=== PATIENT | female | born 2000 | race Caucasian/White ===

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

== ENCOUNTER 2020-07-04 09:33 | Emergency (ER) | payer OTHER ==
[2020-07-04 10:17] LABS: Absolute Lymphocytes (CBC) 2.1 K/uL (0.7-4.9); Basophils % 0.7 % (0-1.3); Hematocrit 40.6 % (36.0-45.0); Lymphocytes % 19.6 % (15.3-44.8); MPV 8.3 fL (7.6-11.3); RBC Red Blood Cell Count 5.15 M/uL (3.86-4.86)
[2020-07-04 10:32] LABS: BUN Blood Urea Nitrogen 12 mg/dL (7-18); Bicarbonate 24 mmol/L (21-32); Glucose Level 77 mg/dL (74-106); HCG, Quantitative 640 mIU/mL (1-3); Potassium 3.7 mmol/L (3.5-5.1); Sodium Level 138 mmol/L (136-145)
[2020-07-04 11:03] LABS: Urine Blood NEGATIVE (NEG); Urine Glucose NEGATIVE (NEG); Urine Protein NEGATIVE (NEG); Urine Specific Gravity 1.025 (1.005-1.030); Urine pH 5.5 (5.0-7.0)
[2020-07-04 11:18] LABS: Urine Bacteria >50 /HPF (<20); Urine Mucus 2+ /HPF (NONE SEEN); Urine RBC <5 /HPF (NONE SEEN)
--- OUTSIDE RECORDS SUMMARY | 2020-07-04 11:32 | XMS REPORT | Summary of Care ---
:2000 Author Organization [facility] Address [address] [place] [id number] Care Team Providers Name Role Phone Pcp, Patient Does Not Have A Primary Care Provider +1-000-00 0-0000 Reason for Visit Reason Comments LAB covid Encounter Details Date Type Department Care Team Description 04/16/2020 Laboratory Only [facility] Breann Davila FNP [address] [place] [address] Suspected Covid-19 [facility] Lab, Adc Fam Pob I Virus Infection [address] [place] [address] Allergies Not on Filedocumented as of this encounter (statuses as of 04/16/2020) Medications Not on filedocumented as of this encounter (statuses as of 04/16/2020) Active Problems Not on filedocumented as of this encounter (statuses as of 04/16/2020) Social History Tobacco Use Types Packs/Day Years Used Date Never Assessed Sex Assigned at Date Recorded Not on file COVID-19 Exposure Response Date Recorded In the last month, have you been in contact with Yes 04/16/2020 1:46 PM CDT someone who was confirmed or suspected to have Coronavirus / COVID-19? documented as of this encounter Last Filed Vital Signs Not on filedocumented in this encounter Nursing Notes Carie Ponce RN - 04/16/2020 1:40 PM CDPam Hall is a 19 year old female here for COVID Screening with a Nasopharyngeal Swab All droplet and contact precautions taken with appropriate PPE worn while interacting with patient. ? Goggles ? N95 Mask ? Gloves ? Gown RR 18 Pulse Ox 99% Patient educated on plan of care for visit, swabbing technique, risks and benefits of test and length of time to receive results. Verbal consent obtained to perform test. CDC Fact Sheet for Patients nCoV Diagnostic Panel dated 10/11/2019 and Factsheet What to Do if Sick with COVID 19 09/21/19 provided. Patient swabbed per appropriate nasopharyngeal technique, and patient tolerated well. Patient was discharged from the testing clinic in stable condition. Carie Ponce RN 04/16/2020 1:47 PM documented in this encounter Plan of Treatment Name Type Priority Associated Diagnoses Order S chedule COVID-19 (PCR MOLECULAR LAB Routine Suspected Covid-1 9 Virus Expected: 04/16/2020, TESTING) Infection Expires: 2020 documented as of this encounter Results Not on filedocumented in this encounter Visit Diagnoses Diagnosis Suspected Covid-19 Virus Infection - [facility] documented in this encounter Additional Health Concerns Infection Onset Date Last Indicated Resolved Time COVID-19 Rule Out 04/16/2020 04/16/2020 documented as of this encounter Insurance Payer Benefit Plan / Subscriber ID Effective Dates Phone Addre ss Type Group [facility] [id number] 2018-Pres PPO/POS PPO/POS ent documented as of this encounter
--- OUTSIDE RECORDS SUMMARY | 2020-07-04 11:32 | XMS REPORT | Continuity of Care Document ---
:2000 Author Organization [facility] t Address [address] [place] [address] Care Team Providers Name Role Phone Juan R De Oliveira MD Primary Care Physician Lab, Fam Pob I Attending Clinician Unavailable Doctor Unassigned, Name Attending Clinician Unavailable Lia RN Attending Clinician Unavailable Problems This patient has no known problems. Allergies, Adverse Reactions, Alerts This patient has no known allergies or adverse reactions. Social History Social Habit Start Date Stop Date Quantity Comments Source Sex Assigned At MD [place] Medications Ordered Filled Start Stop Current Ordering Indication Dosage Frequency Signature Comments Components Source Medication Medication Date Date Medication? Clinician (SIG) Name Name dextroamphe 2018-0 Yes 1{tbl} Take 1 tamine-amph 9-20 tablet by And erso etamine 20 00:00: mouth n mg tab 00 daily. Procedures This patient has no known procedures. Encounters Start End Encounter Admission Attending Care Care Encounter Source Date/Time Date/Time Type Type Clinicians Facility Department ID 2020-04-16 2020-04-16 Laboratory Lab, [facility] [id number] 13:42:09 14:02:09 Only Fam Pob I Health [id number] [place] [id number] [facility] [phone] [address] 2020-04-16 2020-04-16 Orders Doctor DOWNS [id number] 00:00:00 00:00:00 Only UnassHIEN balderrama [id number] [place] [facility] [id number] [id number] 2020-03-15 2020-03-15 Telephone Fatmata Fitzgerald [id number] 00:00:00 00:00:00 HIEN [id number] [facility] [id number] 2020-03-14 2020-03-14 Laboratory Lab, [facility] [id number] 09:49:25 10:09:25 Only Fam Pob I Health [id number] [place] [id number] [facility]io [phone] [place] [address] [address] Results This patient has no known results.
--- OUTSIDE RECORDS SUMMARY | 2020-07-04 11:32 | XMS REPORT | Summary of Care ---
:2000 Author Organization [facility] Address [address] [place] [address] Care Team Providers Name Role Phone Pcp, Patient Does Not Have A Primary Care Provider +1-000-00 0-0000 Encounter Details Date Type Department Care Team Description 04/16/2020 Orders Only [facility] Doctor Unassigned, No [address] [facility] [place] [address] [address] [place] [address] Allergies Not on Filedocumented as of this encounter (statuses as of 04/16/2020) Medications Not on filedocumented as of this encounter (statuses as of 04/16/2020) Active Problems Not on filedocumented as of this encounter (statuses as of 04/16/2020) Social History Tobacco Use Types Packs/Day Years Used Date Never Assessed Sex Assigned at Date Recorded Not on file documented as of this encounter Last Filed Vital Signs Not on filedocumented in this encounter Plan of Treatment Not on filedocumented as of this encounter Procedures Procedure Name Priority Date/Time Associated Diagnosis Comme nts ASSIGNMENT OF BENEFITS Routine 04/16/2020 1:40 PM CDT documented in this encounter Results Not on filedocumented in this encounter Insurance Payer Benefit Plan / Subscriber ID Effective Dates Phone Addre ss Type Group [facility] [id number] 2018-Pres PPO/POS PPO/POS ent documented as of this encounter
--- NOTE | 2020-07-04 11:39 | ER ---
Nurse's Notes [facility] Name: Jessica Hall Age: 19 yrs Sex: Female : 2000 Arrival Date: 07/04/2020 Time: 09:35 Bed 7 Private MD: Diagnosis: Threatened ;Urinary tract infection, site not specified Presentation: 07/04 09:41 Chief complaint: Patient states: had a positive UPT at home yesterday , LMP was Nov1 , iw has been having cramping for a few days but was worse yesterday , no vaginal bleeding. Coronavirus screen: At this time, the client does not indicate any symptoms associated with coronavirus-19. Ebola Screen: Patient negative for fever greater than or equal to 101.5 degrees Fahrenheit, and additional compatible Ebola Virus Disease symptoms Patient denies exposure to infectious person. Patient denies travel to an Ebola-affected area in the 21 days before illness onset. No symptoms or risks identified at this time. Initial Sepsis Screen: Does the patient meet any 2 criteria? No. Patient's initial sepsis screen is negative. Does the patient have a suspected source of infection? No. Patient's initial sepsis screen is negative. Risk Assessment: Do you want to hurt yourself or someone else? Patient reports no desire to harm self or others. Onset of symptoms was July 02, 2020. 09:41 Method Of Arrival: Ambulatory iw 09:41 Acuity: JOHANNY 3 iw Triage Assessment: 10:00 General: Appears in no apparent distress. uncomfortable, Behavior is cooperative, bp appropriate for age, anxious. Pain: Complains of pain in pelvis. EENT: No deficits noted. Neuro: No deficits noted. Cardiovascular: No deficits noted. Respiratory: No deficits noted. GI: No signs and/or symptoms were reported involving the gastrointestinal system. : Reports cramping, Denies vaginal bleeding. Derm: No deficits noted. Musculoskeletal: No deficits noted. 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 - Family history:: not pertinent. - Social history:: Smoking status: Patient denies any tobacco usage or history of. - Hospitalizations: : No recent hospitalization is reported. Screenin:00 Abuse screen: Denies threats or abuse. Denies injuries from another. Nutritional bp screening: No deficits noted. Tuberculosis screening: No symptoms or risk factors identified. Fall Risk None identified. Assessment: 10:00 General: SEE TRIAGE NOTE. bp 11:07 Reassessment: RHOGAM REQUESTED FROM LAB. DISPO ON HOLD. bp 12:40 Reassessment: PT D/C HOME AMBULATORY WITH FAMILY, DX WITH THREATENED AND UTI. bp Vital Signs: 09:41 BP 138 / 76; Pulse 89; Resp 16; Temp 97.8; Pulse Ox 100% on R/A; iw 11:07 BP 123 / 85; Pulse 85; Resp 16; Pulse Ox 100% ; bp 12:15 BP 124 / 82; Pulse 89; Resp 17; Pulse Ox 100% ; bp ED Course: 09:35 Patient arrived in ED. as 09:39 Alverto Marie MD is Attending Physician. rn 09:43 Triage completed. iw 09:43 Arm band placed on. iw 09:47 Radiology exam delayed due to test not completed at this time. aa4 10:00 Abiel Benson, RN is Primary Nurse. bp 10:00 Patient has correct armband on for positive identification. Bed in low position. Call bp light in reach. Side rails up X2. 10:05 Initial lab(s) drawn, by me, sent to lab. Inserted saline lock: 22 gauge in right em1 forearm, using aseptic technique. Blood collected. 10:40 US Transvaginal Ob In Process Unspecified. EDMS 12:40 No provider procedures requiring assistance completed. bp 12:40 IV discontinued, intact, bleeding controlled, No redness/swelling at site. Pressure bp dressing applied. Administered Medications: 12:30 Drug: RhoGAM (Human) 300 mcg Route: IM; Site: right gluteus; bp 12:40 Follow up: Response: No adverse reaction bp Outcome: 11:38 Discharge ordered by . rn 12:40 Discharged to home ambulatory, with family. bp 12:40 Condition: stable 12:40 Discharge instructions given to patient, Instructed on discharge instructions, follow up and referral plans. medication usage, safe sex practices, Demonstrated understanding of instructions, follow-up care, medications, Prescriptions given X 1. 12:42 Patient left the ED. bp Signatures: Dispatcher [employer] Neena Doran Irene, GABRIEL RN Yulisa Garber4 Alverto Marie MD MD rn Martinez, Carlitos cali1 Abiel Benson RN RN bp
--- NOTE | 2020-07-04 11:39 | EDPHYS ---
Physician Documentation [facility] Name: Jessica Hall Age: 19 yrs Sex: Female : 2000 Arrival Date: 07/04/2020 Time: 09:35 Bed 7 Private MD: ED Physician Alverto Marie HPI: 07/04 10:08 This 19 yrs old Female presents to ER via Ambulatory with complaints of rn Pelvic Pain - 5 wks preg. 10:08 The patient presents to the emergency department with abdominal pain. The estimated rn gestational age is 5 weeks. course: care: none, Leakage of Fluid: none appreciated, Ultrasound: the patient has not had an ultrasound, Risk/complications: no obvious risks or complications are appreciated. Previous pregnancies: the patient has never been . Associated signs and symptoms: Pertinent positives: abdominal pain, Pertinent negatives: vaginal bleeding, vaginal discharge. The patient has not experienced similar symptoms in the past. The patient has not recently seen a physician. Just found out she was yesterday, + UPT, + mild lower abd pain/cramping, no vaginal bleeding or discharge. Was concerned so came in for evaluation. Pain is mild. . 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 - Family history:: not pertinent. - Social history:: Smoking status: Patient denies any tobacco usage or history of. - Hospitalizations: : No recent hospitalization is reported. ROS: 10:08 Constitutional: Negative for fever, chills, and weight loss, Eyes: Negative for injury, rn pain, redness, and discharge, Neck: Negative for injury, pain, and swelling, Cardiovascular: Negative for chest pain, palpitations, and edema, Respiratory: Negative for shortness of breath, cough, wheezing, and pleuritic chest pain, Abdomen/GI: Negative for nausea, vomiting, diarrhea, and constipation, Back: Negative for injury and pain, : Negative for injury, bleeding, discharge, and swelling, MS/Extremity: Negative for injury and deformity, Skin: Negative for injury, rash, and discoloration, Neuro: Negative for headache, weakness, numbness, tingling, and seizure. Exam: 10:08 Constitutional: This is a well developed, well nourished patient who is awake, alert, rn and in no acute distress. Head/Face: Normocephalic, atraumatic. Cardiovascular: Regular rate and rhythm. No pulse deficits. Respiratory: No increased work of breathing, no retractions or nasal flaring. Abdomen/GI: Soft, non-tender Skin: Warm, dry with normal turgor. Normal color with no rashes, no lesions, and no evidence of cellulitis. MS/ Extremity: Pulses equal, no cyanosis. Neurovascular intact. Full, normal range of motion. Equal circumference. Neuro: Awake and alert, GCS 15 Vital Signs: 09:41 BP 138 / 76; Pulse 89; Resp 16; Temp 97.8; Pulse Ox 100% on R/A; iw 11:07 BP 123 / 85; Pulse 85; Resp 16; Pulse Ox 100% ; bp 12:15 BP 124 / 82; Pulse 89; Resp 17; Pulse Ox 100% ; bp MDM: 09:39 Patient medically screened. rn 11:05 Differential diagnosis: ectopic , IUP, threatened miscarriage. Data reviewed: rn vital signs, nurses notes, lab test result(s), radiologic studies, ultrasound, and as a result, I will discharge patient. Counseling: I had a detailed discussion with the patient and/or guardian regarding: the historical points, exam findings, and any diagnostic results supporting the discharge/admit diagnosis, lab results, radiology results, the need for outpatient follow up, to return to the emergency department if symptoms worsen or persist or if there are any questions or concerns that arise at home. Special discussion: I discussed with the patient/guardian in detail that at this point there is no indication for admission to the hospital. It is understood, however, that if the symptoms persist or worsen the patient needs to return immediately for re-evaluation. Based on the history and exam findings, there is no indication for further emergent testing or inpatient evaluation. I discussed with the patient/guardian the need to see the OB Gyne specialist for further evaluation of the symptoms. ED course: Pt with intrauterine gestational sac, approx 4 weeks, shows subchorionic blood. Pt without reports of vaginal bleeding, but likely to ensue. Blood type A-, will given Rhogam, and recommend close OB f/u. Already started her vitamins. . 07/04 09:45 Order name: Quantitative Hcg; Complete Time: 10:57 rn 07/04 09:45 Order name: Abo/rh Typing 07/04 09:45 Order name: Basic Metabolic Panel; Complete Time: 10:57 rn 07/04 09:45 Order name: CBC with Diff; Complete Time: 10:57 rn 07/04 09:45 Order name: Urine Microscopic Only; Complete Time: 11:36 rn 07/04 10:45 Order name: Urine Dipstick--Ancillary (enter results); Complete Time: 11:36 bd 07/04 10:45 Order name: Urine --Ancillary (enter results); Complete Time: 11:36 bd 07/04 11:29 Order name: Urine Culture [facility] 07/04 11:29 Order name: ABO/RH no charge; Complete Time: 11:36 [facility] 07/04 11:35 Order name: Rh Typing [facility] 07/04 11:35 Order name: Fetalscreen [facility] 07/04 11:35 Order name: Cord Rh type [facility] 07/04 11:36 Order name: Antibody Screen [facility] 07/04 11:36 Order name: Rhogam [facility] 07/04 09:45 Order name: Urine Test (obtain specimen); Complete Time: 10:50 rn 07/04 09:45 Order name: IV Saline Lock; Complete Time: 10:05 rn 07/04 09:45 Order name: Labs collected and sent; Complete Time: 10:05 rn 07/04 09:45 Order name: NPO; Complete Time: 10:12 rn 07/04 09:45 Order name: Urine Dipstick-Ancillary (obtain specimen); Complete Time: 10:50 rn 07/04 09:45 Order name: US Transvaginal Ob; Complete Time: 12:21 rn Administered Medications: 12:30 Drug: RhoGAM (Human) 300 mcg Route: IM; Site: right gluteus; bp 12:40 Follow up: Response: No adverse reaction bp Disposition: 07/04/20 11:38 Discharged to Home. Impression: Threatened , Urinary tract infection, site not specified. - Condition is Stable. - Discharge Instructions: Threatened Miscarriage, Urinary Tract Infection, Adult, Pelvic Rest. - Prescriptions for Macrobid 100 mg Oral Capsule - take 1 capsule by ORAL route every 12 hours for 7 days; 14 capsule. - Work release form, Medication Reconciliation Form, Thank You Letter, Antibiotic Education, Prescription Opioid Use form. - Follow up: Private Physician; When: As needed; Reason: Recheck today's complaints, Re-evaluation by your physician. - Problem is new. - Symptoms have improved. Signatures: Dispatcher [employer] EDJoanna Verde RN RN iw Nieto, Roman, MD MD rn Peltier, Brian, RN RN bp Corrections: (The following items were deleted from the chart) 10:10 10:08 Constitutional: Negative for fever, chills, and weight loss, Eyes: Negative for rn injury, pain, redness, and discharge, Neck: Negative for injury, pain, and swelling, Cardiovascular: Negative for chest pain, palpitations, and edema, Respiratory: Negative for shortness of breath, cough, wheezing, and pleuritic chest pain, Abdomen/GI: Negative for nausea, vomiting, diarrhea, and constipation, Back: Negative for injury and pain, : Negative for injury, bleeding, discharge, and swelling, MS/Extremity: Negative for injury and deformity, Skin: Negative for injury, rash, and discoloration, Neuro: Negative for headache, weakness, numbness, tingling, and seizure, rn 12:42 11:38 07/04/2020 11:38 Discharged to Home. Impression: Threatened ; Urinary bp tract infection, site not specified. Condition is Stable. Forms are Medication Reconciliation Form, Thank You Letter, Antibiotic Education, Prescription Opioid Use. Follow up: Private Physician; When: As needed; Reason: Recheck today's complaints, Re-evaluation by your physician. Problem is new. Symptoms have improved. rn
--- NOTE | 2020-07-04 11:57 | RAD REPORT ---
EXAM DESCRIPTION: US - Transvaginal OB - 07/04/2020 10:39 am CLINICAL HISTORY: rule out ectopic Pelvic pain, vaginal bleeding. COMPARISON: No comparisons FINDINGS: Small cystic structure is seen in the fundal endometrium measuring 2 mm. This is potential ly an early gestational sac but is nonspecific at this small size. No yolk sac or embryo yet seen. Brito bchorionic bleed is seen adjacent to the gestational sac measuring 17 x 14 mm. The maternal adnexa are within normal limits. Normal left ovary. Mildly enlarged right ovary. Right o varian cyst is present with mild adjacent free fluid. The right ovarian cyst measures 3.2 cm and has benign features. Both ovaries demonstrate normal Doppler blood flow. IMPRESSION: The findings could be related to a very early IUP. Gestational sac measures 2 mm. Correl ation with serial HCG levels and follow-up transvaginal ultrasound in 7-10 days would be recommended.
[2020-07-07 20:12] VITALS: TEMP 97.8; O2SAT 100
[2020-07-07 20:14] VITALS: BP 124/82
== END 2020-07-04 12:42 | disposition home or self-care (01) ==
LOC: ER 09:33
DX: O20.0 Threatened abortion (principal); O23.41 Unspecified infection of urinary tract in pregnancy, first trimester; Z3A.01 Less than 8 weeks gestation of pregnancy
CPT/HCPCS: 87088; 85025; 87086; 80048; 36415; 86900; 86850; 81025; 86901 ×2; 84702; 76817; 96372; 99284; J2790; 81003; 81015

== ENCOUNTER 2020-10-04 22:27 | Emergency (ER) | payer OTHER ==
--- OUTSIDE RECORDS SUMMARY | 2020-10-04 22:31 | XMS REPORT | Continuity of Care Document ---
:2000 Author Organization [facility] t Address [address] [place] [address] [address]. [address] [place] [address] Care Team Providers Name Role Phone Juan [...] Date Date Medication? Clinician (SIG) Name Name dextroamphmorgan 2018-0 Yes 1{tbl} Take 1 tamine-amph 9-20 tablet by And erso etamine 20 00:00: mouth n mg tab 00 daily. Procedures This patient has no known procedures. Encounters Start End Encounter Admission Attending Care Care Encounter Source Date/Time Date/Time Type Type Clinicians Facility Department ID 2020-04-16 2020-04-16 Laboratory Lab, [facility] [id number] 13:42:09 14:02:09 Only Fam [facility] [id number] [place] [id number] Professio [phone] nal [address] 2020-04-16 2020-04-16 Orders Doctor DOWNS [id number] 00:00:00 00:00:00 Only UnassHIEN balderrama [id number] [place] [facility] [id number] 2020-03-15 2020-03-15 Telephone Fatmata Fitzgerald [id number] 00:00:00 00:00:00 [place] [id number] [facility] [id number] 2020-03-14 2020-03-14 Laboratory Lab, [facility] [id number] 09:49:25 10:09:25 Only Fam Pob I Health [id number] [place] [id number] [facility] [phone] nal 0[address] Results This patient has no known results.
[2020-10-04] MEDS ORDERED: ACETAMINOPHEN 500 MG TAB ONE (23:30)
[2020-10-04 23:51] LABS: Urine Blood NEGATIVE (NEG); Urine Glucose NEGATIVE (NEG); Urine Protein TRACE (NEG); Urine Specific Gravity >1.030 (1.005-1.030)
[2020-10-05 00:10] LABS: Absolute Lymphocytes (CBC) 3.4 K/uL (0.7-4.9); Basophils % 0.4 % (0-1.3); Hematocrit 35.7 % (36.0-45.0); Lymphocytes % 19.7 % (15.3-44.8); MPV 8.6 fL (7.6-11.3); RBC Red Blood Cell Count 4.48 M/uL (3.86-4.86)
[2020-10-05 00:11] LABS: Protime INR 0.96
[2020-10-05 00:25] LABS: ALT/SGPT 31 U/L (12-78); AST/SGOT 14 U/L (15-37); Albumin 3.3 g/dL (3.4-5.0); Alkaline Phosphatase 87 U/L (45-117); BUN Blood Urea Nitrogen 8 mg/dL (7-18); Bicarbonate 24 mmol/L (21-32); Bilirubin Direct < 0.1 mg/dL (0-0.2); Bilirubin Total 0.1 mg/dL (0.2-1.0); Glucose Level 82 mg/dL (74-106); NT PRO-BNP 6 pg/mL (<125); Potassium 3.6 mmol/L (3.5-5.1); Protein, Total 7.5 g/dL (6.4-8.2); Sodium Level 139 mmol/L (136-145); Troponin (Emerg Dept Use Only) < 0.02 ng/mL (0.0-0.045)
--- NOTE | 2020-10-05 01:14 | EDPHYS ---
Physician Documentation [facility] Name: Jessica Hall Age: 19 yrs Sex: Female : 2000 Arrival Date: 10/04/2020 Time: 22:30 Bed 13 Private MD: ED Physician Eriberto English HPI: 10/04 23:25 This 19 yrs old Female presents to ER via Ambulatory with complaints of High mh7 Blood Pressure, Chest Pain. 23:25 The patient or guardian reports chest pain that is located primarily in the substernal mh7 area. The pain does not radiate. Associated signs and symptoms: Pertinent positives: elevated blood pressure, Pertinent negatives: abdominal pain, cough, diaphoresis, dizziness, headache, lower extremity pain, lower extremity swelling, lightheadedness, nausea, near syncope, palpitations, recent travel, shortness of breath, syncope, vomiting. The chest pain is described as sharp. Duration: The patient or guardian reports multiple episodes, that are intermittent, that wax and wane, with no pattern. Modifying factors: The symptoms are alleviated by nothing. the symptoms are aggravated by nothing. Severity of pain: At its worst the pain was moderate 7 day(s) ago, in the emergency department the pain has improved moderately. The patient has experienced similar episodes in the past, a few times. Patient is 19 weeks and complains of sharp chest pain for about 10 days and intermittent elevated blood pressure. She denies any other complaints.. 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 - Social history:: Smoking status: Patient denies any tobacco usage or history of. ROS: 23:25 Constitutional: Negative for fever, chills, and weight loss, Eyes: Negative for injury, mh7 pain, redness, and discharge, ENT: Negative for injury, pain, and discharge, Neck: Negative for injury, pain, and swelling, Respiratory: Negative for shortness of breath, cough, wheezing, and pleuritic chest pain, Abdomen/GI: Negative for abdominal pain, nausea, vomiting, diarrhea, and constipation, Back: Negative for injury and pain, : Negative for injury, bleeding, discharge, and swelling, MS/Extremity: Negative for injury and deformity, Skin: Negative for injury, rash, and discoloration, Neuro: Negative for headache, weakness, numbness, tingling, and seizure, Psych: Negative for depression, anxiety, suicide ideation, homicidal ideation, and hallucinations, Allergy/Immunology: Negative for hives, rash, and allergies, Endocrine: Negative for neck swelling, polydipsia, polyuria, polyphagia, and marked weight changes, Hematologic/Lymphatic: Negative for swollen nodes, abnormal bleeding, and unusual bruising. Exam: 23:25 Constitutional: This is a well developed, well nourished patient who is awake, alert, mh7 and in no acute distress. Head/Face: Normocephalic, atraumatic. Eyes: Pupils equal round and reactive to light, extra-ocular motions intact. Lids and lashes normal. Conjunctiva and sclera are non-icteric and not injected. Cornea within normal limits. Periorbital areas with no swelling, redness, or edema. Neck: Trachea midline, no thyromegaly or masses palpated, and no cervical lymphadenopathy. Supple, full range of motion without nuchal rigidity, or vertebral point tenderness. No Meningismus. Chest/axilla: Normal chest wall appearance and motion. Nontender with no deformity. No lesions are appreciated. Cardiovascular: Regular rate and rhythm with a normal S1 and S2. No gallops, murmurs, or rubs. Normal PMI, no JVD. No pulse deficits. Respiratory: Lungs have equal breath sounds bilaterally, clear to auscultation and percussion. No rales, rhonchi or wheezes noted. No increased work of breathing, no retractions or nasal flaring. Abdomen/GI: Soft, non-tender, with normal bowel sounds. No distension or tympany. No guarding or rebound. No evidence of tenderness throughout. Back: No spinal tenderness. No costovertebral tenderness. Full range of motion. Skin: Warm, dry with normal turgor. Normal color with no rashes, no lesions, and no evidence of cellulitis. MS/ Extremity: Pulses equal, no cyanosis. Neurovascular intact. Full, normal range of motion. Neuro: Awake and alert, GCS 15, oriented to person, place, time, and situation. Cranial nerves II-XII grossly intact. Motor strength 5/5 in all extremities. Sensory grossly intact. Cerebellar exam normal. Normal gait. Psych: Awake, alert, with orientation to person, place and time. Behavior, mood, and affect are within normal limits. Vital Signs: 22:57 BP 133 / 76; Pulse 95; Resp 16; Temp 98.3; Pulse Ox 99% on R/A; Weight 77.11 kg; Height vg1 5 ft. 0 in. (152.40 cm); Pain 6/10; 23:00 BP 122 / 71; Pulse 92; Resp 18; Pulse Ox 100% on R/A; vg1 03 00:30 BP 126 / 89; Pulse 90; Resp 16; Pulse Ox 98% ; rr5 01:30 BP 118 / 62; Pulse 85; Resp 17; Pulse Ox 100% ; rr5 10/04 22:57 Body Mass Index 33.20 (77.11 kg, 152.40 cm) vg1 MDM: 01:10 Differential diagnosis: abnormal EKG, acute myocardial infarction, acute pericarditis, mh7 anxiety, chest wall pain, costochondritis, mitral valve prolapse, myocarditis, peptic ulcer disease, pericarditis, pneumonia, pneumothorax, pulmonary embolus. HEART Score: History: Slightly Suspicious (0), ECG: Non specific repolarization disturbance / LBTB / PM (1), Age: < or = 45 years (0), Risk Factors: 1 or 2 risk factors (1), [Obesity] Troponin: < or = 1 x Normal Limit (0), Total Score = 2. Data reviewed: vital signs, nurses notes, lab test result(s), cardiac enzymes, CBC, electrolytes, urinalysis, EKG, radiologic studies, plain films. Data interpreted: Pulse oximetry: on room air is 100 %. Interpretation: normal. Counseling: I had a detailed discussion with the patient and/or guardian regarding: the historical points, exam findings, and any diagnostic results supporting the discharge/admit diagnosis, lab results, radiology results, to return to the emergency department if symptoms worsen or persist or if there are any questions or concerns that arise at home. Refusal of service: The patient/guardian displays adequate decision making capability and despite a detailed discussion of alternatives, benefits, risks, and consequences refuses: CT Scan. 01:13 Patient medically screened. [facility] 01:13 ED course: NAD, VSS, no focal neurological deficits. Recommended CT Angio Chest for PE 7 but patient refused. Patient wants to leave against medical advice. Explained the possibility of permanent disability and/or if serious medical condition is present and goes untreated. She verbalized that she understood this information as presented. She knows that she can return if she has any concerns.. 10/04 22:54 Order name: Basic Metabolic Panel [facility] 10/04 22:54 Order name: CBC with Diff [facility] 10/04 22:54 Order name: LFT's [facility] 10/04 22:54 Order name: Magnesium [facility] 10/04 22:54 Order name: NT PRO-BNP [facility] 10/04 22:54 Order name: PT-INR [facility] 10/04 22:54 Order name: Troponin (emerg Dept Use Only) [facility] 10/04 22:55 Order name: Basic Metabolic Panel; Complete Time: 00:34 [facility] 10/04 22:55 Order name: CBC with Automated Diff; Complete Time: 00:34 [facility] 10/04 22:55 Order name: Liver (Hepatic) Function; Complete Time: 00:34 [facility] 10/04 22:55 Order name: Magnesium; Complete Time: 00:34 [facility] 10/04 22:56 Order name: NT PRO-BNP; Complete Time: 00:34 [facility] 10/04 22:56 Order name: Protime (+INR); Complete Time: 00:34 [facility] 10/04 22:56 Order name: Troponin (Emerg Dept Use Only); Complete Time: 00:34 [facility] 10/04 22:54 Order name: XRAY Chest (1 view) [facility] 10/04 22:54 Order name: EKG; Complete Time: 22:56 [facility] 10/04 22:54 Order name: Cardiac monitoring; Complete Time: 23:10 [facility] 10/04 22:54 Order name: EKG - Nurse/Tech; Complete Time: 23:10 [facility] 10/04 22:54 Order name: IV Saline Lock; Complete Time: 00:01 [facility] 10/04 22:54 Order name: Labs collected and sent; Complete Time: 00:01 [facility] 10/04 22:54 Order name: O2 Per Protocol; Complete Time: 23:10 [facility] 10/04 22:54 Order name: O2 Sat Monitoring; Complete Time: 23:10 7 10/04 22:54 Order name: Urine Dipstick-Ancillary (obtain specimen); Complete Time: 23:46 7 10/04 22:54 Order name: Heart Tones; Complete Time: 00:10 7 10/04 23:40 Order name: Urine Dipstick--Ancillary (enter results); Complete Time: 23:52 mw2 10/04 23:40 Order name: Urine --Ancillary (enter results); Complete Time: 23:52 mw2 Administered Medications: 10/04 23:46 Drug: Tylenol 1000 mg Route: PO; vg1 10/05 00:45 Follow up: Response: No adverse reaction rr5 Disposition: 10/05/20 01:13 Patient has left against medical advice. Impression: Chest pain, unspecified. - Patients states they are going to Home. - Condition is Stable. - Discharge Instructions: Nonspecific Chest Pain, [id number]. Follow up: Private Physician; When: Today; Reason: Worsening of condition, Recheck today's complaints, Continuance of care, Re-evaluation by your physician. - Problem is new. - Symptoms have improved. Signatures: Dispatcher [employer] Romie Camacho RN RN rr5 Sameera Glass RN RN vg1 Eriberto English MD MD mh7 Corrections: (The following items were deleted from the chart) 01:23 00:56 Chest For PE Angio+CT.RAD.BRZ ordered. [facility] 01:44 01:13 10/05/2020 01:13 Patients has left against medical advice. Impression: Chest rr5 pain, unspecified. Patient states they are going to Home. Condition is Stable. Follow up: Private Physician; When: Today; Reason: Worsening of condition, Recheck today's complaints, Continuance of care, Re-evaluation by your physician. Problem is new. Symptoms have improved. 7 01:49 01:44 10/05/2020 01:13 Patients has left against medical advice. Impression: Chest rr5 pain, unspecified. Patient states they are going to Home. Condition is Stable. Discharge Instructions: Nonspecific Chest Pain, [id number]. Follow up: Private Physician; When: Today; Reason: Worsening of condition, Recheck today's complaints, Continuance of care, Re-evaluation by your physician. Problem is new. Symptoms have improved. rr5
--- NOTE | 2020-10-05 01:14 | ER ---
Nurse's Notes [facility] Name: Jessica Hall Age: 19 yrs Sex: Female : 2000 Arrival Date: 10/04/2020 Time: 22:30 Bed 13 Private MD: Diagnosis: Chest pain, unspecified Presentation: 10/04 22:57 Chief complaint: Patient states: Took BP at home and it was reading high. Was concerned vg1 because patient is approximately 19 weeks . Coronavirus screen: Client denies travel out of the [place] in the last 14 days. Ebola Screen: Patient negative for fever greater than or equal to 101.5 degrees Fahrenheit, and additional compatible Ebola Virus Disease symptoms. Initial Sepsis Screen: Does the patient meet any 2 criteria? No. Patient's initial sepsis screen is negative. Does the patient have a suspected source of infection? No. Patient's initial sepsis screen is negative. Risk Assessment: Do you want to hurt yourself or someone else? Patient reports no desire to harm self or others. Onset of symptoms was October 04, 2020. 22:57 Method Of Arrival: Ambulatory vg1 22:57 Acuity: JOHANNY 3 vg1 CLAIMS EXAMINER: 10/05 00:13 LMP 03/09/2020 rr5 Historical: - Allergies: 10/04 23:01 No Known Allergies; vg1 - Home Meds: 23:01 Vitamin Oral [Active]; vg1 - PMHx: 23:01 Heart Murmur; vg1 - Immunization history:: Adult Immunizations up to date, Flu vaccine is not up to date. - Social history:: Smoking status: Patient denies any tobacco usage or history of. Screenin:02 Abuse screen: Denies threats or abuse. Nutritional screening: No deficits noted. vg1 Tuberculosis screening: No symptoms or risk factors identified. Fall Risk None identified. Assessment: 23:01 General: Appears in no apparent distress. comfortable, Behavior is calm, cooperative. vg1 Pain: Complains of pain in chest Pain does not radiate. Pain began 1 hour ago. Neuro: Level of Consciousness is awake, alert, obeys commands, Oriented to person, place, time, situation. Cardiovascular: Heart tones S1 S2 Patient's skin is warm and dry. Respiratory: Airway is patent Respiratory effort is even, unlabored. GI: No signs and/or symptoms were reported involving the gastrointestinal system. : No signs and/or symptoms were reported regarding the genitourinary system. EENT: No signs and/or symptoms were reported regarding the EENT system. Derm: Skin is intact, is healthy with good turgor. Musculoskeletal: Circulation, motion, and sensation intact. 10/05 00:30 Reassessment: Patient appears in no apparent distress at this time. Patient is alert, rr5 oriented x 3, equal unlabored respirations, skin warm/dry/pink. received awake alert awaiting for results. 01:10 Reassessment: Patient appears in no apparent distress at this time. Patient is alert, rr5 oriented x 3, equal unlabored respirations, skin warm/dry/pink. reassess by provider, advised for CT PE angio, patient refused and stated she will follow up to her PCP. 01:43 Reassessment: Patient appears in no apparent distress at this time. Patient is alert, rr5 oriented x 3, equal unlabored respirations, skin warm/dry/pink. discharge without instruction given and explained without complaints made. Vital Signs: 10/04 22:57 BP 133 / 76; Pulse 95; Resp 16; Temp 98.3; Pulse Ox 99% on R/A; Weight 77.11 kg; Height vg1 5 ft. 0 in. (152.40 cm); Pain 6/10; 23:00 BP 122 / 71; Pulse 92; Resp 18; Pulse Ox 100% on R/A; vg1 03 00:30 BP 126 / 89; Pulse 90; Resp 16; Pulse Ox 98% ; rr5 01:30 BP 118 / 62; Pulse 85; Resp 17; Pulse Ox 100% ; rr5 10/04 22:57 Body Mass Index 33.20 (77.11 kg, 152.40 cm) vg1 Vitals: 00:11 Heart Tones 168 bpm. rr5 ED Course: 10/04 22:30 Patient arrived in ED. cl3 22:43 Eriberto English MD is Attending Physician. mh7 22:52 Sameera Glass, GABRIEL is Primary Nurse. vg1 23:01 Triage completed. vg1 23:03 Patient has correct armband on for positive identification. Placed in gown. Bed in low vg1 position. Call light in reach. Side rails up X 1. 23:03 surveillance monitor on. Pulse ox on. NIBP on. vg1 23:03 Patient maintains SpO2 saturation greater than 95% on room air. vg1 23:23 XRAY Chest (1 view) In Process Unspecified. EDMS 23:46 Missed attempt(s): 22 gauge in left antecubital area. vg1 23:57 Inserted saline lock: 20 gauge in right forearm, using aseptic technique. Blood rr5 collected. 10/05 00:30 Arm band placed on right wrist. rr5 01:48 No provider procedures requiring assistance completed. IV discontinued, intact, rr5 bleeding controlled, No redness/swelling at site. Pressure dressing applied. Administered Medications: 03 23:46 Drug: Tylenol 1000 mg Route: PO; vg1 03 00:45 Follow up: Response: No adverse reaction rr5 Outcome: 01:40 AMA AMA form signed rr5 01:40 Condition: stable 01:40 Discharge instructions given to patient, Instructed on discharge instructions, follow rr5 up and referral plans. Demonstrated understanding of instructions, follow-up care. 01:44 Patient left the ED. rr5 01:49 Patient left the ED. rr5 Signatures: Dispatcher [employer] Romie Camacho RN RN rr5 Almas Ramires cl3 Sameera Glass RN RN vg1 Eriberto English MD MD mh7
--- NOTE | 2020-10-05 11:45 | RAD REPORT ---
EXAM DESCRIPTION: XR Chest 1 View CLINICAL HISTORY: CHEST PAIN TECHNIQUE: Single frontal view of the chest is submitted. COMPARISON: None available for comparison FINDINGS: Lungs: No focal consolidation. Pleura: No appreciable effusion. No pneumothorax. Heart: The cardiothoracic silhouette is within normal limits. Mediastinum: Unremarkable Bones: Intact Upper abdomen: Unremarkable IMPRESSION: No acute disease. 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 The interpreting r adiologist is fully responsible for the content of the report.
[2020-10-05 16:46] VITALS: TEMP 98.3
[2020-10-05 16:49] VITALS: BP 118/62; O2SAT 100
--- NOTE | 2020-10-06 05:16 | EKG ---
Test Date: 2020-10-04 Test Time: 23:04:43 Director Global Market Research: FATUMA MEASUREMENT RESULTS: Intervals: Rate: 90 OH: 178 QRSD: 72 QT: 346 QTc: 423 [place]: P: 31 OH: 178 QRS: 32 T: 20 INTERPRETIVE STATEMENTS: Normal sinus rhythm Cannot rule out Anterior infarct, age undetermined Abnormal ECG Compared to ECG 07/02/2019 14:15:40 Myocardial infarct finding now present Electronically Signed On 10-06-20 05:11:42 DOCUMENTATION WRITER by Pipe Liu
== END 2020-10-05 01:49 | disposition left against medical advice (07) ==
LOC: ER 22:27
DX: R07.9 Chest pain, unspecified (principal); Z53.20 Procedure and treatment not carried out because of patient's decision for unspecified reasons; R03.0 Elevated blood-pressure reading, without diagnosis of hypertension
CPT/HCPCS: 36415; 71045; 80048; 80076; 81003; 81025; 83735; 83880; 84484; 85025; 85610; 93005; 99285